=== PATIENT | female | born 1955 | race Hispanic/Latino ===

== ENCOUNTER 2020-01-04 15:37 | Emergency (ER) | payer MEDICARE ==
[~2020-01-04] VITALS: Ht 162.6 cm; Wt 127.0 kg
--- OUTSIDE RECORDS SUMMARY | 2020-01-04 15:39 | XMS REPORT ---
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 Allergies, Adverse Reactions, Alerts This patient has no known allergies or adverse reactions. Medications This patient has no known medications. Encounters Start Date/Time End Date/Time Encounter Type Admission Type Attending [facility] Facility Care Department Encounter ID 2018-05-21 13:16:45 2018-05-21 13:16:45 Outpatient [facility] [id number] 2018-03-20 09:59:11 2018-03-20 09:59:11 Outpatient [facility] [id number] 2018-03-05 10:15:37 2018-03-05 10:15:37 Outpatient [facility] [id number] 2018-01-08 10:46:21 2018-01-08 10:46:21 Outpatient [facility] [id number] 2017-12-11 10:19:35 2017-12-11 10:19:35 Outpatient [facility] [id number] 2017-12-11 09:56:01 2017-12-11 09:56:01 Outpatient [facility] [id number] 2017-11-13 09:43:50 2017-11-13 09:43:50 Outpatient [facility] [id number] 2017-10-23 09:04:02 2017-10-23 09:04:02 Outpatient [facility] [id number] 2017-10-09 09:53:45 2017-10-09 09:53:45 Outpatient [facility] [id number] 2017-09-06 13:50:27 2017-09-06 13:50:27 Outpatient [facility] [id number] 2017-09-04 13:56:39 2017-09-04 13:56:39 Outpatient [facility] [id number] 2017-08-10 09:28:14 2017-08-10 09:28:14 Outpatient [facility] [id number] 2017-07-28 09:06:44 2017-07-28 09:06:44 Outpatient [facility] [id number] 2017-07-24 12:41:56 2017-07-24 12:41:56 Outpatient [facility] [id number] 2017-06-28 00:00:00 2017-06-28 00:00:00 Outpatient [facility] [id number] Results Test Description Test Time Test Comments Text Results Atomic Results Result Comments JAMES CAVAL FILTER REMOVAL 2019-06-06 16:52:00 Reason for Exam:->[id number] FINAL REPORT Procedure: Inferior venacavogram, 06/06/2019 HISTORY: Prior inferior vena caval filter placement, need removal as the filter is no longer needed. Anesthesia: 2% lidocaine Modality: Ultrasound and Fluoroscopy, fluoroscopy time: 1.1 minutes, total dose: 109.8 mGy, reference air kerma method Approach: Right internal jugular vein Sedation: 1 mg Versed, 50 mcg, moderate conscious sedation monitored by the registered nurse. Sedation time: 20 minutes TECHNIQUE: After obtaining informed consent, this procedure was performed without untoward effect. All elements maximal sterile barrier technique were utilized. Using real-time ultrasound guidance, the right internal jugular vein was accessed percutaneously. A needle was placed into the jugular vein followed by introduction of a guidewire into the inferior vena cava. A 5 Khmer catheter was then advanced into the lower portion of the inferior venacavogram and inferior venacavography was performed. A filter is identified in the upper portion of the lumbar spine. The inferior vena cava below the filter appears patent. There is an approximately 3.5 cm x 2.2 cm in diameter clot inside the IVC filter. Because the size of the clot, no attempts could be related to remove the filter. Patient should be replaced on blood thinners for approximately 23 months and followed up with either CT venography or inferior venacavography for potential removal at that time. The catheter was removed and hemostasis was achieved. CONCLUSION: Inferior vena caval filter is satisfactorily positioned but contains a sizable intraluminal thrombus pr ecluding safe removal at this time. Recommend restarting anticoagulants for 2 to three months and follow-up inferior venacavography or CT venography performed to see if the clot resolves and at that point the filter could be removed. Signed: Ly Copeland MDReport Verified Date/Time: 06/06/2019 16:52:37 Reading Location: [facility] P048 Angio Body Reading Room C METABOLIC PANEL 2019-06-06 10:17:00 SODIUM (BEAKER) (test huvq=168) 142 meq/L 136-145 POTASSIUM (BEAKER) (test ufiw=892) 3.5 meq/L 3.5-5.1 CHLORIDE (BEAKER) (test wznv=427) 107 meq/L 98-107 CO2 (BEAKER) (test nzut=125) 28 meq/L 22-29 BLOOD UREA NITROGEN (BEAKER) (test eayw=953) 12 mg/dL 7-21 CREATININE (BEAKER) (test pdrw=545) 0.75 mg/dL 0.57-1.25 GLUCOSE RANDOM (BEAKER) (test dqlh=790) 122 mg/dL 70-105 CALCIUM (BEAKER) (test vuhv=426) 9.3 mg/dL 8.4-10.2 EGFR (BEAKER) (test uzcs=2592) 77 mL/min/1.73 sq m ESTIMATED GFR IS NOT ACCURATE CREATININE CLEARANCE IN PREDICTING GLOMERULAR FILTRATION RATE. ESTIMATED GFR IS NOT APPLICABLE FOR DIALYSIS PATIENTS. PROTHROMBIN TIME/[id number] 10:14:00* Test Item Value Reference Range Comments PROTIME (BEAKER) (test zjxa=948) 13.0 seconds 11.9-14.2 INR (BEAKER) (test ajco=575) 1.0 <=5.9 Effective 04/03/2019: PT Reference Range ChangeNew: 11.9-14.2 Previous: 11.7-14. 7RECOMMENDED COUMADIN/WARFARIN INR THERAPY RANGESSTANDARD DOSE: 2.0-3.0 Include s: PROPHYLAXIS for venous thrombosis, systemic embolization; TREATMENT for venou s thrombosis and/or pulmonary embolus.HIGH RISK: Target INR is 2.5-3.5 for patie nts wiht mechanical heart valves.[id number] 10:14:00* Test Item Value Reference Range Comments PARTIAL THROMBOPLASTIN TIME (BEAKER) (test scbk=349) 29.1 seconds 22.5-36.0 CBC W/PLT COUNT & AUTO [id number] 10:03:00* Test Item Value Reference Range Comments WHITE BLOOD CELL COUNT (BEAKER) (test saxe=386) 6.5 K/ L 3.5-10.5 RED BLOOD CELL COUNT (BEAKER) (test wang=176) 3.69 M/ L 3.93-5.22 HEMOGLOBIN (BEAKER) (test mdar=903) 11.3 GM/DL 11.2-15.7 HEMATOCRIT (BEAKER) (test ybck=889) 36.0 % 34.1-44.9 MEAN CORPUSCULAR VOLUME (BEAKER) (test gdky=119) 97.6 fL 79.4-94.8 MEAN CORPUSCULAR HEMOGLOBIN (BEAKER) (test xbfk=147) 30.6 pg 25.6-32.2 MEAN CORPUSCULAR HEMOGLOBIN CONC (BEAKER) (test wdch=227) 31.4 GM/DL 32.2-35.5 RED CELL DISTRIBUTION WIDTH (BEAKER) (test ipyq=026) 14.2 % 11.7-14.4 PLATELET COUNT (BEAKER) (test jlpw=631) 167 K/CU MM 150-450 MEAN PLATELET VOLUME (BEAKER) (test uhlc=803) 10.5 fL 9.4-12.3 NUCLEATED RED BLOOD CELLS (BEAKER) (test mgar=439) 0 /100 WBC 0-0 NEUTROPHILS RELATIVE PERCENT (BEAKER) (test zecc=375) 76 % LYMPHOCYTES RELATIVE PERCENT (BEAKER) (test isvo=409) 15 % MONOCYTES RELATIVE PERCENT (BEAKER) (test jmtv=608) 6 % EOSINOPHILS RELATIVE PERCENT (BEAKER) (test vatp=936) 2 % BASOPHILS RELATIVE PERCENT (BEAKER) (test cngt=350) 1 % NEUTROPHILS ABSOLUTE COUNT (BEAKER) (test fjxa=041) 4.89 K/ L 1.56-6.13 LYMPHOCYTES ABSOLUTE COUNT (BEAKER) (test iewc=342) 0.97 K/ L 1.18-3.74 MONOCYTES ABSOLUTE COUNT (BEAKER) (test sudr=706) 0.41 K/ L 0.24-0.36 EOSINOPHILS ABSOLUTE COUNT (BEAKER) (test mgsf=402) 0.11 K/ L 0.04-0.36 BASOPHILS ABSOLUTE COUNT (BEAKER) (test vubs=318) 0.05 K/ L 0.01-0.08 IMMATURE GRANULOCYTES-RELATIVE PERCENT (BEAKER) (test grpj=3324) 0 % 0-1 [id number] 05:40:00* Test Item Value Reference Range Comments MAGNESIUM (BEAKER) (test vyuz=888) 1.9 mg/dL 1.6-2.6 BASIC METABOLIC [id number] 05:40:00* Test Item Value Reference Range Comments SODIUM (BEAKER) (test mjlo=454) 142 meq/L 136-145 POTASSIUM (BEAKER) (test djzu=942) 4.2 meq/L 3.5-5.1 CHLORIDE (BEAKER) (test sybx=230) 112 meq/L 98-107 CO2 (BEAKER) (test xdxe=182) 24 meq/L 22-29 BLOOD UREA NITROGEN (BEAKER) (test xznh=279) 11 mg/dL 7-21 CREATININE (BEAKER) (test xlgl=972) 0.80 mg/dL 0.57-1.25 GLUCOSE RANDOM (BEAKER) (test ilcm=825) 150 mg/dL 70-105 CALCIUM (BEAKER) (test youp=575) 9.2 mg/dL 8.4-10.2 EGFR (BEAKER) (test sjyq=5536) 72 mL/min/1.73 sq m ESTIMATED GFR IS NOT ACCURATE CREATININE CLEARANCE IN PREDICTING GLOMERULAR FILTRATION RATE. ESTIMATED GFR IS NOT APPLICABLE FOR DIALYSIS PATIENTS. CBC W/PLT COUNT & AUTO [id number] 04:54:00* Test Item Value Reference Range Comments WHITE BLOOD CELL COUNT (BEAKER) (test mysa=573) 8.1 K/ L 3.5-10.5 RED BLOOD CELL COUNT (BEAKER) (test abzc=838) 2.76 M/ L 3.93-5.22 HEMOGLOBIN (BEAKER) (test edvw=499) 8.9 GM/DL 11.2-15.7 HEMATOCRIT (BEAKER) (test vuos=292) 27.6 % 34.1-44.9 MEAN CORPUSCULAR VOLUME (BEAKER) (test ldnr=857) 100.0 fL 79.4-94.8 MEAN CORPUSCULAR HEMOGLOBIN (BEAKER) (test ytdg=576) 32.2 pg 25.6-32.2 MEAN CORPUSCULAR HEMOGLOBIN CONC (BEAKER) (test mvct=438) 32.2 GM/DL 32.2-35.5 RED CELL DISTRIBUTION WIDTH (BEAKER) (test ugba=124) 15.9 % 11.7-14.4 PLATELET COUNT (BEAKER) (test cive=993) 203 K/CU MM 150-450 MEAN PLATELET VOLUME (BEAKER) (test gzlv=185) 10.4 fL 9.4-12.3 NUCLEATED RED BLOOD CELLS (BEAKER) (test sxox=385) 0 /100 WBC 0-0 NEUTROPHILS RELATIVE PERCENT (BEAKER) (test dgdb=212) 88 % LYMPHOCYTES RELATIVE PERCENT (BEAKER) (test jzdh=722) 9 % MONOCYTES RELATIVE PERCENT (BEAKER) (test upsg=985) 2 % EOSINOPHILS RELATIVE PERCENT (BEAKER) (test pvmo=837) 0 % BASOPHILS RELATIVE PERCENT (BEAKER) (test rpjz=011) 0 % NEUTROPHILS ABSOLUTE COUNT (BEAKER) (test uwuc=528) 7.04 K/ L 1.56-6.13 LYMPHOCYTES ABSOLUTE COUNT (BEAKER) (test dpxa=112) 0.75 K/ L 1.18-3.74 MONOCYTES ABSOLUTE COUNT (BEAKER) (test bdfa=067) 0.19 K/ L 0.24-0.36 EOSINOPHILS ABSOLUTE COUNT (BEAKER) (test ldnd=195) 0.00 K/ L 0.04-0.36 BASOPHILS ABSOLUTE COUNT (BEAKER) (test uxld=667) 0.01 K/ L 0.01-0.08 IMMATURE GRANULOCYTES-RELATIVE PERCENT (BEAKER) (test cjpl=4285) 1 % 0-1 ANG, CAVAL FILTER [id number] 18:41:00Reason for exam:->Acute RLE DVT FINAL REPORT IVC filter placement History: DVT, contraindication to anticoagulation secondary to anemia. Modality: Fluoroscopy. Sedation: None Rn Ortho: Jovanni Issa MD. Assistan t: None. Approach: Right common femoral vein. Est imated blood loss: < 5 cc. Specimen: None. Fluoroscopy Time: 0.6 min.Reference Air Kerma (Ka, r): 136 mGy. Technique: Informed written consent was obtained. Discussion of risks, benefits, and alternatives were made with the patient. The patient expressed understanding and agreed to proceed. A universal timeout was performed prior to starting the procedure. All elements maximal sterile barrier technique was utilized for this procedure, including utilization of sterile scrub solution for skin prep, a large sterile sheet to cover the areas of the patient that were not prepped, and hand hygiene, mask, head covering, and sterile gown for performing radiologist and scrub technologist. The skin was anesthetized with 2 % lidocaine. The right common femoral vein was accessed using a micropuncture set. A 0.035 inch Oconnor wire was placed through the needle into the IVC. The needle was removed and a 7 Khmer filter deployment sheath was advanced over the wire into the IVC for DSA cavagram. The cava was measured at 26 mm in diameter. A Option Elite filter was deployed in an infrarenal location, with the tip at the level of L1-L2. Post placement venogram demonstrates proper placement. The sheath was removed and hemostasis was obtained with compression. Vital signs were monitored throughout the procedure by a nurse, and remained stable. The patient tolerated the procedure well and left the department in the same condition. FINDINGS: IVC: The inferior vena cava is patent without evidence of thrombus or stenosis. There is no evidence of duplicated IVC or circumaortic left renal vein. Single renal veins are present bilaterally at the level of L1-L2. IMPRESSION:Cavagram and IVC filter placement performed without complication. Signed: Jovanni Issa MD Report Verified Date/Time: 05/02/2019 18:41:26 Reading Location: [address] Body Reading Room Electronically signed by: JOVANNI ISSA on 06:41 PM HEMOGLOBIN AND [id number] 16:39:00* Test Item Value Reference Range Comments HEMOGLOBIN (BEAKER) (test mqhq=651) 8.5 GM/DL 11.2-15.7 HEMATOCRIT (BEAKER) (test nolc=842) 25.2 % 34.1-44.9 CBC W/PLT COUNT & AUTO [id number] 07:20:00* Test Item Value Reference Range Comments WHITE BLOOD CELL COUNT (BEAKER) (test pnaw=391) 7.3 K/ L 3.5-10.5 RED BLOOD CELL COUNT (BEAKER) (test gtmh=731) 2.43 M/ L 3.93-5.22 HEMOGLOBIN (BEAKER) (test pngs=088) 7.9 GM/DL 11.2-15.7 HEMATOCRIT (BEAKER) (test zigw=649) 24.2 % 34.1-44.9 MEAN CORPUSCULAR VOLUME (BEAKER) (test fzea=641) 99.6 fL 79.4-94.8 MEAN CORPUSCULAR HEMOGLOBIN (BEAKER) (test iwrd=394) 32.5 pg 25.6-32.2 MEAN CORPUSCULAR HEMOGLOBIN CONC (BEAKER) (test zxgs=632) 32.6 GM/DL 32.2-35.5 RED CELL DISTRIBUTION WIDTH (BEAKER) (test amee=257) 14.6 % 11.7-14.4 PLATELET COUNT (BEAKER) (test eigy=437) 153 K/CU MM 150-450 MEAN PLATELET VOLUME (BEAKER) (test yzhf=282) 11.3 fL 9.4-12.3 NUCLEATED RED BLOOD CELLS (BEAKER) (test lxhu=028) 0 /100 WBC 0-0 NEUTROPHILS RELATIVE PERCENT (BEAKER) (test bdwj=191) 67 % LYMPHOCYTES RELATIVE PERCENT (BEAKER) (test akhg=152) 25 % MONOCYTES RELATIVE PERCENT (BEAKER) (test wtvg=968) 6 % EOSINOPHILS RELATIVE PERCENT (BEAKER) (test yepy=191) 2 % BASOPHILS RELATIVE PERCENT (BEAKER) (test qfqj=279) 1 % NEUTROPHILS ABSOLUTE COUNT (BEAKER) (test bilk=776) 4.84 K/ L 1.56-6.13 LYMPHOCYTES ABSOLUTE COUNT (BEAKER) (test kswz=956) 1.83 K/ L 1.18-3.74 MONOCYTES ABSOLUTE COUNT (BEAKER) (test azix=978) 0.40 K/ L 0.24-0.36 EOSINOPHILS ABSOLUTE COUNT (BEAKER) (test qelo=111) 0.11 K/ L 0.04-0.36 BASOPHILS ABSOLUTE COUNT (BEAKER) (test owmv=655) 0.04 K/ L 0.01-0.08 IMMATURE GRANULOCYTES-RELATIVE PERCENT (BEAKER) (test lken=9123) 1 % 0-1 BASIC METABOLIC [id number] 07:07:00* Test Item Value Reference Range Comments SODIUM (BEAKER) (test fnkv=891) 138 meq/L 136-145 POTASSIUM (BEAKER) (test zobx=613) 3.4 meq/L 3.5-5.1 CHLORIDE (BEAKER) (test xhqa=066) 105 meq/L 98-107 CO2 (BEAKER) (test zfdm=037) 27 meq/L 22-29 BLOOD UREA NITROGEN (BEAKER) (test pcid=963) 12 mg/dL 7-21 CREATININE (BEAKER) (test xvtc=829) 0.75 mg/dL 0.57-1.25 GLUCOSE RANDOM (BEAKER) (test brmz=051) 102 mg/dL 70-105 CALCIUM (BEAKER) (test isbx=372) 8.3 mg/dL 8.4-10.2 EGFR (BEAKER) (test tbpb=3420) 78 mL/min/1.73 sq m ESTIMATED GFR IS NOT ACCURATE CREATININE CLEARANCE IN PREDICTING GLOMERULAR FILTRATION RATE. ESTIMATED GFR IS NOT APPLICABLE FOR DIALYSIS PATIENTS. BASIC METABOLIC [id number] 17:12:00* Test Item Value Reference Range Comments SODIUM (BEAKER) (test rkve=843) 133 meq/L 135-148 POTASSIUM (BEAKER) (test nzmu=378) 3.5 meq/L 3.6-5.5 CHLORIDE (BEAKER) (test plbu=611) 100 meq/L 98-106 CO2 (BEAKER) (test chfd=135) 27 meq/L 24-32 BLOOD UREA NITROGEN (BEAKER) (test iejy=782) 17 mg/dL 10-26 CREATININE (BEAKER) (test qosq=974) 0.67 mg/dL 0.50-1.20 GLUCOSE RANDOM (BEAKER) (test uymp=371) 109 mg/dL 70-110 CALCIUM (BEAKER) (test yolp=747) 8.7 mg/dL 8.5-10.5 EGFR (BEAKER) (test bjqz=1122) 88 mL/min/1.73 sq m ESTIMATED GFR IS NOT ACCURATE CREATININE CLEARANCE IN PREDICTING GLOMERULAR FILTRATION RATE. ESTIMATED GFR IS NOT APPLICABLE FOR DIALYSIS PATIENTS. PT/[id number] 17:10:00* Test Item Value Reference Range Comments PROTIME (BEAKER) (test tois=915) 11.6 seconds 9.8-12.0 INR (BEAKER) (test oqia=800) 1.1 <=5.9 PARTIAL THROMBOPLASTIN TIME (BEAKER) (test macf=114) 20.5 seconds 25.8-34.5 RECOMMENDED COUMADIN/WARFARIN INR THERAPY RANGESSTANDARD DOSE: 2.0 - 3.0 Inclu levar: PROPHYLAXIS for venous thrombosis, systemic embolization; TREATMENT for vernell ous thrombosis and/or pulmonary embolus.HIGH RISK: Target INR is 2.5-3.5 for pat ients with mechanical heart valves.HEPATIC FUNCTION [id number] 17:06:00* Test Item Value Reference Range Comments TOTAL PROTEIN (BEAKER) (test zmzf=199) 6.1 gm/dL 6.0-8.5 ALBUMIN (BEAKER) (test ftrh=2039) 3.6 g/dL 3.5-5.0 BILIRUBIN TOTAL (BEAKER) (test nwsa=039) 0.3 mg/dL 0.1-1.2 BILIRUBIN DIRECT (BEAKER) (test nqkc=404) 0.1 mg/dL 0.0-0.4 ALKALINE PHOSPHATASE (BEAKER) (test obkl=552) 67 U/L 30-115 AST (SGOT) (BEAKER) (test xsdw=827) 31 U/L 5-40 ALT (SGPT) (BEAKER) (test jyoy=494) 34 U/L 5-50 B-TYPE NATRIURETIC FACTOR (BNP)2019-05-01 17:05:00* Test Item Value Reference Range Comments B-TYPE NATRIURETIC PEPTIDE (BEAKER) (test pbfy=695) 28 pg/mL 0-100 CBC W/PLT COUNT & AUTO [id number] 17:00:00* Test Item Value Reference Range Comments WHITE BLOOD CELL COUNT (BEAKER) (test mmwb=193) 6.3 K/ L 4.0-10.0 RED BLOOD CELL COUNT (BEAKER) (test pbat=216) 2.09 M/ L 4.00-5.00 HEMOGLOBIN (BEAKER) (test wtaq=069) 7.0 GM/DL 12.0-15.0 HEMATOCRIT (BEAKER) (test hbsf=885) 21.4 % 36.0-45.0 MEAN CORPUSCULAR VOLUME (BEAKER) (test viqq=239) 102.3 fL 82.0-99.0 MEAN CORPUSCULAR HEMOGLOBIN (BEAKER) (test svud=995) 33.6 pg 27.0-33.0 MEAN CORPUSCULAR HEMOGLOBIN CONC (BEAKER) (test eujy=954) 32.8 GM/DL 32.0-36.0 RED CELL DISTRIBUTION WIDTH (BEAKER) (test xspz=302) 12.5 % 10.3-14.2 PLATELET COUNT (BEAKER) (test aoit=743) 181 K/CU MM 150-430 MEAN PLATELET VOLUME (BEAKER) (test fuhw=465) 8.7 fL 6.5-10.5 NEUTROPHILS RELATIVE PERCENT (BEAKER) (test dhqt=145) 70 % LYMPHOCYTES RELATIVE PERCENT (BEAKER) (test yahs=636) 23 % MONOCYTES RELATIVE PERCENT (BEAKER) (test kezo=083) 5 % EOSINOPHILS RELATIVE PERCENT (BEAKER) (test ytni=755) 1 % BASOPHILS RELATIVE PERCENT (BEAKER) (test zvzo=157) 0 % NEUTROPHILS ABSOLUTE COUNT (BEAKER) (test cgho=137) 4.38 K/ L 1.80-8.00 LYMPHOCYTES ABSOLUTE COUNT (BEAKER) (test usqn=810) 1.45 K/ L 1.48-4.50 MONOCYTES ABSOLUTE COUNT (BEAKER) (test halv=844) 0.33 K/ L 0.00-1.30 EOSINOPHILS ABSOLUTE COUNT (BEAKER) (test nevm=297) 0.08 K/ L 0.00-0.50 BASOPHILS ABSOLUTE COUNT (BEAKER) (test gayh=917) 0.02 K/ L 0.00-0.20 BLOOD GAS, [id number] 17:34:00* Test Item Value Reference Range Comments PH VENOUS (BEAKER) (test hhqx=445) 7.46 7.32-7.42 PCO2 VENOUS (BEAKER) (test cdri=871) 36 mmHg 41-51 PO2 VENOUS (BEAKER) (test zpsf=295) 57 mmHg 25-40 O2 SATURATION VENOUS (BEAKER) (test cioe=716) 91.4 % 40.0-70.0 HCO3 VENOUS (BEAKER) (test swnl=667) 25 mmol/L 21-29 BASE EXCESS VENOUS (BEAKER) (test srhx=949) 1.4 mmol/L -2.0-3.0 PATIENT TEMPERATURE (BEAKER) (test dngb=2195) 37.0 C FIO2 (BEAKER) (test nvmn=0724) 21.0 % [id number] 17:20:00* Test Item Value Reference Range Comments PHOSPHORUS (BEAKER) (test gpyy=722) 2.1 mg/dL 2.3-4.[address], CHEST WITH IV CONTRAST- PE TEST [id number] 17:19:00Reason for exam:-> SHORTNESS OF BREATHReason for exam:->DIZZINESSReason for exam:-> PALPITATIONSReason for exam:->tachycadia, hypoxiaWhat is the patient's sedation requirement?->No SedationFINAL REPORT CT scan of the chest with pulmonary embolism protocol. Clinical History: Shortness of breathSHORTNESS OF BREATHDIZZINESSPALPITATIONStachycadia, hypoxia. Comparison Study: Chest x-ray dated April 27, 2019. Technique: Pre-intravenous contrast localization images were acquired followed by contiguous helical slices through the thorax post administration of intravenous contrast using a timed bolus fashion. This exam was performed according to our department dose optimization program which includes automated exposure control, adjustment of the mA and/or kV according to the patient's size and/or use of iterative reconstruction technique. Findings: There is no evidence of pulmonary embolism. The mediastinum is unremarkable with no suspicious masses or adenopathy. The pleural spaces are clear. The visualized portions of the upper abdomen are unremarkable. The tracheobronchial tree is clear with no endobronchial lesions. The pulmonary parenchyma is unremarkable. Bone windows demonstrate no evidence of fracture or malalignment. Degenerative changes are seen. Impression: 1. No evidence of pulmonary embolism. Signed: Tanner Cardona MDReport Verified Date/Time: 04/27/2019 17:19:26 Reading Location: [address] Consult Reading Room D-DIMER 2019-04-27 17:07:00* Test Item Value Reference Range Comments D-DIMER QUANTITATIVE (BEAKER) (test perr=701) 0.29 MG/L FEU <0.50 Intended Use: The D-Dimer Assay can be used to aid in the diagnosis of Deep Vein Thrombosis (DVT) and Pulmonary Embolism Disease (PED).In patients with low pre- test probability, various studies concerning STA Liatest D-dimer test have repor dania that with a cutoff value of 0.50 MG/L FEU, the Negative Predictive Value (BREED TO WEAN PRODUCTION TECHNICIAN V) regarding the exclusion of thrombosis is within 95-100% range.RAD, CHEST, 1 VIEW, NON [id number] 16:40:00Reason for exam:->SHORTNESS OF BREATHReason for exam:->DIZZINESSReason for exam:->PALPITATIONSFINAL REPORT TECHNIQUE: Single view of the chest. COMPARISON: None FINDINGS: The cardiac silhouette is within normal limits. Mediastinum is unremarkable. Lungs are clear. Osseous structures appear unremarkable. Soft tissues appear unremarkable. IMPRESSION: Normal chest exam. Signed: Delonte Molina MDReport Verified Date/Time: 04/27/2019 16:40:21 Reading Location: [address] Reading Room ONIN [id number] 16:00:00* Test Item Value Reference Range Comments TROPONIN I (BEAKER) (test zuue=476) 0.02 ng/mL 0.00-0.03 Troponin I (TnI) levels must be interpreted in the context of the presenting sym ptoms and the clinical findings. Elevated TnI levels indicate myocardial damage, but are not specific for ischemic heart disease. Elevated TnI levels are seen in patients with other cardiac conditions (including myocarditis and congestive h eart failure), and slight TnI elevations occur in patients with other conditions , including sepsis, renal failure, acidosis, acute neurological disease, and per sistent tachyarrhythmia.B-TYPE NATRIURETIC FACTOR (BNP)2019-04-27 16:00:00* Test Item Value Reference Range Comments B-TYPE NATRIURETIC PEPTIDE (BEAKER) (test jnsg=643) 23 pg/mL 0-100 [id number] 15:53:00* Test Item Value Reference Range Comments MAGNESIUM (BEAKER) (test lugz=211) 1.9 mg/dL 1.6-2.6 Specimen moderately hemolyzed BASIC METABOLIC [id number] 15:53:00* Test Item Value Reference Range Comments SODIUM (BEAKER) (test tcyo=026) 137 meq/L 136-145 POTASSIUM (BEAKER) (test offo=058) 4.8 meq/L 3.5-5.1 Specimen moderately hemolyzed CHLORIDE (BEAKER) (test umqx=751) 107 meq/L 98-107 CO2 (BEAKER) (test llle=753) 24 meq/L 22-29 BLOOD UREA NITROGEN (BEAKER) (test mvdx=965) 44 mg/dL 7-21 CREATININE (BEAKER) (test yjtz=980) 0.81 mg/dL 0.57-1.25 Specimen moderately hemolyzed GLUCOSE RANDOM (BEAKER) (test vwjn=646) 116 mg/dL 70-105 CALCIUM (BEAKER) (test fbsc=555) 8.3 mg/dL 8.4-10.2 EGFR (BEAKER) (test vgvl=3928) 71 mL/min/1.73 sq m ESTIMATED GFR IS NOT ACCURATE CREATININE CLEARANCE IN PREDICTING GLOMERULAR FILTRATION RATE. ESTIMATED GFR IS NOT APPLICABLE FOR DIALYSIS PATIENTS. PT/[id number] 15:47:00* Test Item Value Reference Range Comments PROTIME (BEAKER) (test zxah=266) 23.6 seconds 11.9-14.2 INR (BEAKER) (test etkj=862) 2.2 <=5.9 PARTIAL THROMBOPLASTIN TIME (BEAKER) (test tesf=657) 36.3 seconds 22.5-36.0 Effective 04/03/2019: PT Reference Range ChangeNew: 11.9-14.2 Previous: 11.7-14. 7RECOMMENDED COUMADIN/WARFARIN INR THERAPY RANGESSTANDARD DOSE: 2.0-3.0 Include s: PROPHYLAXIS for venous thrombosis, systemic embolization; TREATMENT for venou s thrombosis and/or pulmonary embolus.HIGH RISK: Target INR is 2.5-3.5 for patie nts wiht mechanical heart valves.CBC W/PLT COUNT & AUTO [id number] 15:39:00* Test Item Value Reference Range Comments WHITE BLOOD CELL COUNT (BEAKER) (test ndth=611) 8.5 K/ L 3.5-10.5 RED BLOOD CELL COUNT (BEAKER) (test wetq=426) 3.62 M/ L 3.93-5.22 HEMOGLOBIN (BEAKER) (test vkem=770) 11.4 GM/DL 11.2-15.7 HEMATOCRIT (BEAKER) (test zqlp=584) 34.4 % 34.1-44.9 MEAN CORPUSCULAR VOLUME (BEAKER) (test ibce=631) 95.0 fL 79.4-94.8 MEAN CORPUSCULAR HEMOGLOBIN (BEAKER) (test oqgf=173) 31.5 pg 25.6-32.2 MEAN CORPUSCULAR HEMOGLOBIN CONC (BEAKER) (test aazm=781) 33.1 GM/DL 32.2-35.5 RED CELL DISTRIBUTION WIDTH (BEAKER) (test qmsr=686) 13.2 % 11.7-14.4 PLATELET COUNT (BEAKER) (test cggn=047) 162 K/CU MM 150-450 MEAN PLATELET VOLUME (BEAKER) (test ogfi=512) 11.0 fL 9.4-12.3 NUCLEATED RED BLOOD CELLS (BEAKER) (test wmzt=206) 0 /100 WBC 0-0 NEUTROPHILS RELATIVE PERCENT (BEAKER) (test ywti=216) 72 % LYMPHOCYTES RELATIVE PERCENT (BEAKER) (test yysb=332) 20 % MONOCYTES RELATIVE PERCENT (BEAKER) (test ekkq=806) 5 % EOSINOPHILS RELATIVE PERCENT (BEAKER) (test lznh=644) 2 % BASOPHILS RELATIVE PERCENT (BEAKER) (test chnd=978) 1 % NEUTROPHILS ABSOLUTE COUNT (BEAKER) (test zlga=024) 6.11 K/ L 1.56-6.13 LYMPHOCYTES ABSOLUTE COUNT (BEAKER) (test eyrt=312) 1.71 K/ L 1.18-3.74 MONOCYTES ABSOLUTE COUNT (BEAKER) (test rnek=814) 0.45 K/ L 0.24-0.36 EOSINOPHILS ABSOLUTE COUNT (BEAKER) (test mrup=802) 0.13 K/ L 0.04-0.36 BASOPHILS ABSOLUTE COUNT (BEAKER) (test sraf=807) 0.04 K/ L 0.01-0.08 IMMATURE GRANULOCYTES-RELATIVE PERCENT (BEAKER) (test btue=1464) 1 % 0-1
[2020-01-04 16:58] LABS: CLARITY,URINE SL CLOUDY (CLEAR); COLOR,URINE YELLOW (YELLOW); LEUKOCYTE ESTERASE ,URINE TRACE (NEGATIVE); NITRITE,URINE NEGATIVE (NEGATIVE); PROTEIN,URINE DIPSTICK NEGATIVE (NEGATIVE)
[2020-01-04 16:59] LABS: BACTERIA,URINE FEW /HPF; BILIRUBIN,URINE NEGATIVE (NEGATIVE); EPITHELIAL CELLS,URINE MANY /LPF; KETONES,URINE NEGATIVE (NEGATIVE); URINE UROBILINOGEN 0.2 mg/dL (0.2 - 1); WBC,URINE (MAN) 0-5 /HPF (0-5)
--- NOTE | 2020-01-04 17:52 | Diagnostic Imaging Report ---
CT Abdomen and Pelvis without contrast INDICATION: Left flank pain, ^stone TECHNIQUE: Thin collimation axial images obtained from the diaphragm to the level of the pubic symphysis without nonionic intravenous contrast. Dose reduction techniques used: Automated exposure control, adjustment of the mAs and/or kVp according to patient size, standardized low-dose protocol, and/or iterative reconstruction technique. RADIATION DOSE: Total DLP: 834.44 mGy*cm Estimated effective dose: (DLP x 0.015 x size factor) mSv CTDIvol has been reviewed. It is below the limits set by the Radiation Protocol Committee (RPC). COMPARISON: None. ABDOMEN FINDINGS: Lung Bases: Lung bases are clear. Mild eventration of the left diaphragm. Visualized portion of the mediastinum is normal. Liver: Mild steatosis. No mass. Gallbladder: Present and contracted. No ductal dilatation. Pancreas: Atrophic. No mass or ductal dilatation. Spleen: Normal size without mass. Adrenal Glands: No evidence for mass. Kidneys: Right: No renal calculus. No cortical mass or hydronephrosis Left: No renal calculus. No cortical mass or hydronephrosis Lymph Nodes: No lymphadenopathy. Aorta: Normal in diameter. IVC: IVC filter with tip at the confluence of the renal veins PELVIS FINDINGS: Bowel: Stomach: Normal. Small Bowel: Normal in caliber with normal wall thickness. Large Bowel: Diverticulosis coli. No associated inflammation. Appendix: Not visualized. Bladder: Normal. Ureters: No ureteral dilatation or calculus. The uterus is present and normal in morphology. No adnexal mass. Peritoneum/retroperitoneum: No free fluid or fluid collection. Bones: Degenerative changes of the spine, particularly the posterior elements of the lower lumbar spine. No compression deformities. Soft tissues: Small fat-containing umbilical hernia. IMPRESSION: 1. No evidence of renal calculus or obstructive uropathy. 2. Diverticulosis coli. No evidence for bowel obstruction or inflammation. 3. Mild steatosis. Signed by: Dr. Leandra Mendoza MD on 01/04/2020 5:49 PM
[2020-01-04 18:23] VITALS: BP 148/87
== END 2020-01-04 18:31 | disposition home or self-care (01) ==
LOC: ER 15:37
DX: M54.42 Lumbago with sciatica, left side (principal); I10 Essential (primary) hypertension
CPT/HCPCS: 74176; 81001; 99283